=== PATIENT | female | born 1975 | race Caucasian/White ===

== ENCOUNTER 2016-12-10 20:26 | Emergency (ER) | payer OTHER ==
[2016-12-10 20:31] VITALS: BP 123/91; PULSE 89; TEMP 97; BMI 28.3
--- NOTE | 2016-12-10 21:36 | PDOC ---
History of Present Illness - General Chief Complaint: Head/Neck problem Stated Complaint: WEAKNESS TO THE LEFT SIDE Time Seen by Provider: 12/10/16 21:22 History Source: Patient - History of Present Illness Initial Comments: 12/11/16 00:36 41 year old female with neck and shoulder pain with left sided numbness since yesterday morning after waking up. denies chronic back pain, neck injury or lifting. + cervica; tenderness. Past History - Past Medical History Allergies/Adverse Reactions: Allergies Allergy/AdvReac Type Severity Reaction Status Date / Time No Known Allergies Allergy Verified 12/10/16 20:31 Home Medications: Ambulatory Orders Ibuprofen 600 mg PO Q6H PRN #20 tablet 12/11/16 Methocarbamol [Robaxin -] 500 mg PO TID #14 tablet 12/11/16 Cancer: Yes (back) - Psycho/Social/Smoking Cessation Hx Suicidal Ideation: No Smoking History: Never smoked Review of Systems - Review of Systems Able to Perform ROS?: Yes Is the patient limited Slovak proficient: No Constitutional: No: Symptoms Reported, See HPI, Chills, Diaphoresis, Fever, Loss of Appetite, Malaise, Night Sweats, Weakness, Weight Stable, Unintentional Wgt. Loss, Unexplained wgt Loss, Other Musculoskeletal: Yes: Back Pain, Muscle Weakness, Neck Pain *Physical Exam - Vital Signs Last Vital Signs Temp Pulse Resp BP Pulse Ox 97 F L 89 18 123/91 99 12/10/16 20:29 12/10/16 20:29 12/10/16 20:29 12/10/16 20:29 12/10/16 20:29 - Physical Exam General Appearance: Yes: Appropriately Dressed Respiratory/Chest: positive: Chest Tender, Lungs Clear, Normal Breath Sounds Cardiovascular: positive: Regular Rhythm, Regular Rate, S1, S2 Musculoskeletal: positive: Normal Inspection, Muscle Spasm (left side neck shoulder and chest tenderss) Neurologic: positive: rolled glass crosscutter II-XII NML intact, Fully Oriented, Motor Strength 5/5 , Other (no arm ) *DC/Admit/Observation/Transfer Diagnosis at time of Disposition: Cervical radiculopathy - Discharge Dispostion Disposition: HOME - Prescriptions Prescriptions: Ibuprofen 600 mg PO Q6H PRN #20 tablet PRN Reason: Pain Methocarbamol [Robaxin -] 500 mg PO TID #14 tablet - Patient Instructions Printed Discharge Instructions: DI for Cervical Radiculopathy Additional Instructions: apply heat/cold as needed take ibuprofen every 6 hours as needed for pain take robaxin muscle relaxant as prescribed follow up with your doctor as soon as possible. - Post Discharge Activity Work/School Note: Back to Work
[2016-12-10] MEDS ORDERED: KETOROLAC TROMETHAMINE 30 MG/1 ML VIAL IM ONE (21:56)
[2016-12-10] MEDS ORDERED: METHOCARBAMOL 500 MG TABLET PO ONE (21:56)
[2016-12-10] MEDS ORDERED: METHOCARBAMOL 500 MG TABLET ONE (22:16)
[2016-12-10] MEDS ORDERED: KETOROLAC TROMETHAMINE 30 MG/1 ML VIAL ONE (22:16)
== END 2016-12-11 00:49 | disposition home or self-care (01) ==
LOC: JER 20:26
PROC: 3E0233Z Introduction of Anti-inflammatory into Muscle, Percutaneous Approach (ICD-10-PCS; principal; 2016-12-10)
DX: M54.12 Radiculopathy, cervical region (principal); Z85.89 Personal history of malignant neoplasm of other organs and systems
CPT/HCPCS: 70450-TC; 72125-TC; 84703; 99282-25